=== PATIENT | female | born 1995 | race Caucasian/White ===

== ENCOUNTER 2023-07-08 10:05 | Inpatient (IN) | payer OTHER, MEDICAID ==
[~2023-07-08 10:05] MED LIST: ASPIRIN 81M81 MG/TA2 PO; PROMETHAZINE12.5 M5 PO; PROTONIX 40MG T40 MG PO
[2023-07-08] MEDS ORDERED: Oxytocin 10 UNITS/ML VIAL ONE (11:44)
[2023-07-08] MEDS ORDERED: Phenylephrine 10 MG/ML VIAL ONE (11:44)
[2023-07-08] MEDS ORDERED: NS 20 ML IV ONE (11:44)
[2023-07-08] MEDS ORDERED: Ondansetron 4 MG/2 ML VIAL ONE (11:44)
[2023-07-08] MEDS ORDERED: Meperidine 50 MG/ML 1 ML VIAL ONE (12:36)
[2023-07-08] MEDS ORDERED: Ketorolac 60 MG/2 ML VIAL IM ONE (12:36)
[2023-07-08] MEDS ORDERED: LR 1,000 ML IV ONE (12:45)
== END 2023-07-10 10:00 | disposition home or self-care (01) | DRG 787 ==
LOC: OB 10:05
PROVIDERS: ADMIT Student in an Organized Health Care Education/Training Program
PROC: 10D00Z1 Extraction of Products of Conception, Low, Open Approach (ICD-10-PCS; principal; 2023-07-08)
PROC: 0U950ZZ Drainage of Right Fallopian Tube, Open Approach (ICD-10-PCS; 2023-07-08)
DX: O99.344 Other mental disorders complicating childbirth (principal); O98.32 Other infections with a predominantly sexual mode of transmission complicating childbirth; O99.214 Obesity complicating childbirth; K21.9 Gastro-esophageal reflux disease without esophagitis; O99.62 Diseases of the digestive system complicating childbirth; O34.13 Maternal care for benign tumor of corpus uteri, third trimester; O26.893 Other specified pregnancy related conditions, third trimester; N83.8 Other noninflammatory disorders of ovary, fallopian tube and broad ligament; A60.09 Herpesviral infection of other urogenital tract; O99.892 Other specified diseases and conditions complicating childbirth; F41.8 Other specified anxiety disorders; D25.1 Intramural leiomyoma of uterus; O24.424 Gestational diabetes mellitus in childbirth, insulin controlled; Z86.16 Personal history of COVID-19; Z3A.39 39 weeks gestation of pregnancy; Z37.0 Single live birth; Z67.91 Unspecified blood type, Rh negative
CPT/HCPCS: J0665; J0690; J1885; J2175; J2371; J2405; J2590; J7120